=== PATIENT | female | born 1970 | race Hispanic/Latino ===

== ENCOUNTER 2017-10-01 19:15 | Observation (INO) | payer SELFPAY ==
[~2017-10-01] VITALS: Ht 152.4 cm; Wt 72.2 kg
[~2017-10-01 19:15] MED LIST: PYRIDIUM200 MG PO
--- NOTE | 2017-10-01 19:30 | NUR ---
PT. AMBULATORY WITH STEADY GAIT TO TREATMENT ROOM.
--- NOTE | 2017-10-01 20:01 | NUR ---
PO ASA, NITROGLYCERIN PASTE AND IV PAIN MED GIVEN PER MD ORDERED.
--- NOTE | 2017-10-01 20:21 | NUR ---
PT. STATES HER CP IS NOW DECREASED TO A 1 ON A SCALE OF 1-10.
[2017-10-01 20:32] LABS: IMMATURE GRANULOCYTES 0.4 % (0.0-1.0); MEAN CELL VOLUME 57.9 fL CALC (80.0-100.0); MEAN CORPUSCULAR HGB 15.6 pG CALC (26.0-32.0); MEAN CORPUSCULAR HGB CONC 26.9 g/L CALC (32.0-36.0); PLATELET COUNT 282 thou/uL (130-400); RED CELL DISTRI WIDTH 20.3 % (11.5-15.5)
[2017-10-01 20:38] LABS: HEMATOCRIT 24.9 % (37.0-47.0); HEMOGLOBIN 6.7 g/dl (12.0-16.0)
[2017-10-01 20:39] LABS: MANUAL DIFFERENTIAL YES
[2017-10-01 20:41] LABS: ALBUMIN 4.6 g/dL (3.2-5.0); ALKALINE PHOSPHATASE 125 u/l (38-126); ANION GAP 19 (6-22 (CALC)); BILIRUBIN, TOTAL 0.7 mg/dL (0.0-1.4); BUN 17 mg/dL (7-17); BUN/CREATININE RATIO 26 (12-20 (CALC)); CALCIUM 9.2 mg/dL (8.4-10.2); CARBON DIOXIDE 22 mmol/l (22-30); CHLORIDE 105 mmol/l (95-108); CREATININE 0.7 mg/dL (0.5-1.0); GFR > 60 ML/MIN (>=60 (CALC)); GFR FOR AFR.AMER. > 60 ML/MIN (>=60 (CALC)); GLUCOSE 197 mg/dL (65-105); POTASSIUM 3.9 mmol/l (3.5-5.1); SGOT/AST 27 u/l (14-36); SGPT/ALT 32 u/l (9-52); SODIUM 141 mmol/l (137-146)
[2017-10-01 20:49] LABS: ACT PARTIAL THROMBO TIME 25.4 SECONDS (20.0-32.5); PROTHROMBIN TIME 10.8 SECONDS (9.0-12.5)
--- NOTE | 2017-10-01 20:50 | NUR ---
PT. STATES SHE HAS A PMH OF ANEMIA AND ALSO HAS VERY HEAVY PERIODS.
[2017-10-01 20:51] LABS: ANISOCYTOSIS FEW; HYPOCHROMIA MODERATE; MICROCYTOSIS MODERATE
[2017-10-01 20:53] LABS: MYOGLOBIN 18 ng/mL (0 - 62)
--- NOTE | 2017-10-01 21:50 | NUR ---
RESTING ON MD SHA IN ROOM TO DISCUSS CLINICAL FINDINGS WITH PT. IN [place] LANGUAGE OF FRISIAN, PT. VERBALIZED UNDERSTANDING. ALSO MADE PT. AWARE OF ADMISSION.
--- NOTE | 2017-10-01 22:43 | NUR ---
Admission Note Report Given to: MARY FLETCHER Transported by: Wheelchair X Stretcher Transported with: X Nurse Transporter X Patent IV O2 X Marketing Program Manager
[2017-10-01 23:00] VITALS: BP 100/63
--- NOTE | 2017-10-01 23:00 | NUR ---
PT TO ROOM 290 VIA [facility]. ACCOMPANIED BY ER STAFF.
--- NOTE | 2017-10-01 23:01 | NUR ---
PT. TRANSFERED TO [place] FLOOR VIA STRETCHER.
--- NOTE | 2017-10-01 23:30 | NUR ---
SHOE REPAIRMAN ZAIN CARTON WAXING MACHINE OPERATOR USED FOR ADMIT. PT ALERT AND ORIENTED. RESP EVEN AND UNLABORED. LUNGS CLEAR BILAT. NO DISTRESS NOTED. TELE IN PLACE. NITRO PASTE ON CHEST. PT HAS NO COMPLAINT OF PAIN. ABD SOFT, ACTIVE BOWEL SOUNDS. NO EDEMA NOTED. IV LAC PATENT, FLUSHED WITHOUT ANY DIFFICULTY. PEDAL PULSES PALPATED. PT DENIES ANY DISCOMFORT . PT ORIENTED TO ROOM AND CALL LIGHT SYSTEM. PT EDUCATED TO CALL FOR ASSISTANCE. CALL LIGHT WITHIN REACH.
[2017-10-01 23:31] LABS: URINE BILIRUBIN - DIPSTICK NEGATIVE (NEGATIVE); URINE BLOOD DIPSTICK NEGATIVE (NEGATIVE); URINE COLOR YELLOW; URINE GLUCOSE - DIPSTICK NEGATIVE (NEGATIVE); URINE KETONE NEGATIVE (NEGATIVE); URINE LEUK ESTERASE TRACE (NEGATIVE); URINE NITRITE - DIPSTICK NEGATIVE (Negative); URINE PROTEIN - DIPSTICK NEGATIVE (NEG-TRACE); URINE SPECIFIC GRAVITY 1.015; URINE UROBILINOGEN - DIPSTICK 0.2 E.U./dL (0.2)
[2017-10-01 23:32] LABS: URINE CLARITY CLEAR
--- NOTE | 2017-10-02 | NUR ---
PT TO ULTRASOUND VIA WC.
--- NOTE | 2017-10-02 00:30 | NUR ---
PT RESTURNED FROM US TO ROOM
--- NOTE | 2017-10-02 02:05 | NUR ---
PT DENIES ANY PAIN OR DISCOMFORT AT THIS TIME. NO DISTRESS NOTED. CALL LIGHT WITHIN REACH .
[2017-10-02 05:03] VITALS: BP 110/55
[2017-10-02 05:34] LABS: ANION GAP 16 (6-22 (CALC)); BUN 15 mg/dL (7-17); BUN/CREATININE RATIO 29 (12-20 (CALC)); CALCIUM 8.9 mg/dL (8.4-10.2); CALCULATED LDLCHOLESTEROL 95 mg/dL (62-129 (CALC)); CARBON DIOXIDE 22 mmol/l (22-30); CHLORIDE 109 mmol/l (95-108); CHOLESTEROL HDL RATIO 3.2 (<4.4 (CALC)); CREATININE 0.5 mg/dL (0.5-1.0); GFR > 60 ML/MIN (>=60 (CALC)); GFR FOR AFR.AMER. > 60 ML/MIN (>=60 (CALC)); GLUCOSE 122 mg/dL (65-105); HDL CHOLESTEROL 56 mg/dL (>=40); POTASSIUM 4.2 mmol/l (3.5-5.1); SODIUM 142 mmol/l (137-146); TOTAL CHOLESTEROL 182 mg/dl (0-199); TOTAL TRIGLYCERIDES 153 mg/dl (30-149); VLDL CHOLESTROL 31 mg/dl (1-41 (CALC))
--- NOTE | 2017-10-02 06:20 | NUR ---
PT IS AWAKE ON ENTRY RESTING IN BED. PT DENIES ANY PAIN OR DISCOMFORT. TELE IN PLACE. ASSESSMENT UNCHANGED. CALL LIGHT WITHIN REACH.
--- NOTE | 2017-10-02 07:00 | NUR ---
SHIFT CHANGE REPORT FROM DILIA CHAN AWAKE ALERT AND ORIENTED, DENIES PAIN, TELE MONITOR IN PLACE, CALL WILLIAM IN REACH.
[2017-10-02 07:38] VITALS: BP 127/70
[2017-10-02 10:44] VITALS: BP 114/68
[2017-10-02] MEDS ORDERED: ZANTAC 150 MAX150 MG PO (11:56)
[2017-10-02] MEDS ORDERED: NAPROXEN500 MG PO (11:56)
[2017-10-02] MEDS ORDERED: FERROUS SULF325 M3 PO (11:56)
[2017-10-02] MEDS ORDERED: AMOXICILLIN875 MG PO (12:16)
--- NOTE | 2017-10-02 13:12 | NUR ---
Discharge instructions given. Patient verbalizes understanding of same. Discharged in good condition via Wheelchair to Home with family. All belongings sent with pt.
== END 2017-10-02 13:05 | disposition home or self-care (01) | DRG 313 ==
LOC: ED 19:15 → ED-I 21:59 → ED 22:19 → MS2 22:20
PROVIDERS: Emergency Medicine; ADMIT Internal Medicine; ATTEND Internal Medicine
DX: R07.89 Other chest pain (principal); J40 Bronchitis, not specified as acute or chronic; D50.9 Iron deficiency anemia, unspecified; D25.9 Leiomyoma of uterus, unspecified; X50.0XXA Overexertion from strenuous movement or load, initial encounter; Y93.89 Activity, other specified; Y92.89 Other specified places as the place of occurrence of the external cause; Y99.0 Civilian activity done for income or pay
CPT/HCPCS: G0378; J1756

== ENCOUNTER 2018-07-16 16:01 | Emergency (ER) | payer OTHER ==
[~2018-07-16] VITALS: Ht 152.4 cm; Wt 60.0 kg
[~2018-07-16 16:01] MED LIST changes: +AMOXICILLIN875 MG PO; +FERROUS SULF325 M3 PO; +NAPROXEN500 MG PO; +ZANTAC 150 MAX150 MG PO
[2018-07-16] MEDS ORDERED: SPRINTEC 2828 DAY PO (16:32)
[2018-07-16] MEDS ORDERED: CRESTOR20 MG PO (16:32)
[2018-07-16 17:07] LABS: URINE BILIRUBIN - DIPSTICK NEGATIVE (NEGATIVE); URINE BLOOD DIPSTICK TRACE-INTACT (NEGATIVE); URINE CLARITY CLEAR; URINE COLOR YELLOW; URINE GLUCOSE - DIPSTICK NEGATIVE (NEGATIVE); URINE KETONE NEGATIVE (NEGATIVE); URINE LEUK ESTERASE TRACE (Negative); URINE NITRITE - DIPSTICK NEGATIVE (Negative); URINE PH 5.5 (4.5-8.0); URINE PROTEIN - DIPSTICK NEGATIVE (NEG-TRACE); URINE SPECIFIC GRAVITY >=1.030; URINE UROBILINOGEN - DIPSTICK 0.2 E.U./dL (0.2)
[2018-07-16 17:27] LABS: IMMATURE GRANULOCYTES 0.5 % (0.0-5.0); MEAN CORPUSCULAR HGB 27.4 pG CALC (26.0-32.0); MEAN CORPUSCULAR HGB CONC 33.1 g/L CALC (32.0-36.0); NEUT# 11.36 thou/uL (2.00-7.15); RED BLOOD COUNT 4.53 mill/uL (4.20-5.60); RED CELL DISTRI WIDTH 14.1 % (11.5-15.5)
[2018-07-16 17:31] LABS: HEMATOCRIT 37.5 % (37.0-47.0); HEMOGLOBIN 12.4 g/dl (12.0-16.0); MEAN CELL VOLUME 82.8 fL CALC (80.0-100.0)
[2018-07-16 17:44] LABS: ALBUMIN 4.4 g/dL (3.2-5.0); ALKALINE PHOSPHATASE 104 u/l (38-126); ANION GAP 15 (6-22 (CALC)); BILIRUBIN, TOTAL 0.6 mg/dL (0.0-1.4); BUN 23 mg/dL (7-17); BUN/CREATININE RATIO 35 (12-20 (CALC)); CARBON DIOXIDE 25 mmol/l (22-30); CHLORIDE 104 mmol/l (95-108); CREATININE 0.7 mg/dL (0.5-1.0); GFR > 60 ML/MIN (>=60 (CALC)); GFR FOR AFR.AMER. > 60 ML/MIN (>=60 (CALC)); POTASSIUM 3.7 mmol/l (3.5-5.1); SGOT/AST 34 u/l (14-36); SGPT/ALT 49 u/l (9-52); SODIUM 141 mmol/l (137-146); TOTAL PROTEIN 8.2 g/dL (6.3-8.2)
[2018-07-16] MEDS ORDERED: ULTRAM50 M1 PO (18:29)
[2018-07-16] MEDS ORDERED: FLEXERIL PO (18:29)
[2018-07-16 18:58] VITALS: BP 148/81
== END 2018-07-16 18:58 | disposition home or self-care (01) | DRG 605 ==
LOC: ED 16:01
PROVIDERS: Emergency Medicine
DX: S20.219A Contusion of unspecified front wall of thorax, initial encounter (principal); S80.11XA Contusion of right lower leg, initial encounter; V49.50XA Passenger injured in collision with unspecified motor vehicles in traffic accident, initial encounter

== ENCOUNTER 2021-02-07 | Emergency (ER) | payer SELFPAY ==
[~2021-02-07] MED LIST changes: +CRESTOR20 MG PO; +FLEXERIL PO; +SPRINTEC 2828 DAY PO; +ULTRAM50 M1 PO
[2021-02-07] MEDS ORDERED: CIPROFLOXACN500 MG PO (20:20)
[2021-02-07 20:46] LABS: URINE BILIRUBIN - DIPSTICK NEGATIVE (NEGATIVE); URINE COLOR YELLOW; URINE GLUCOSE - DIPSTICK 100 mg/dL (NEGATIVE); URINE KETONE NEGATIVE (NEGATIVE); URINE LEUK ESTERASE NEGATIVE (NEGATIVE); URINE PH 6.5 (4.5-8.0); URINE PROTEIN - DIPSTICK NEGATIVE (NEG-TRACE); URINE SPECIFIC GRAVITY 1.025
[2021-02-07 20:52] LABS: URINE BLOOD DIPSTICK NEGATIVE (NEGATIVE); URINE NITRITE - DIPSTICK NEGATIVE (Negative)
[2021-02-07] MEDS ORDERED: LOTRISONE EX (21:13)
== END 2021-02-07 21:27 | disposition home or self-care (01) | DRG 759 ==
PROVIDERS: Family Medicine
DX: N76.2 Acute vulvitis (principal); F41.9 Anxiety disorder, unspecified; F32.9 Major depressive disorder, single episode, unspecified; E78.00 Pure hypercholesterolemia, unspecified